=== PATIENT | male | born 1955 | race African-American/Black ===

== ENCOUNTER 2025-08-28 16:41 | Inpatient (IN) | payer MEDICARE, OTHER ==
[~2025-08-28] VITALS: Ht 177.8 cm; Wt 137.9 kg
[2025-08-28 17:08] LABS: PLATELET COUNT (AUTO) 180 K/uL (152-348); RED BLOOD CELL COUNT(AUTO) 3.61 MIL/uL (4.06-5.63); RED CELL DISTRIBUTION WIDTH 16.6 % (12.1-16.2); WHITE BLOOD COUNT (AUTO) 8.2 K/uL (3.6-10.2)
[2025-08-28] MEDS: IV NS 1000 ML 1,000 ML IV ONE (17:15)
[2025-08-28 17:18] LABS: CREATININE 2.6 mg/dL (0.6-1.3); SODIUM SERUM 141 mmol/L (136-145); UREA NITROGEN, BLOOD 50 mg/dL (7-18)
[2025-08-28 17:23] LABS: ASPARTATE AMINOTRANSFERASE 11 U/L (15-37); TOTAL PROTEIN, SERUM 7.5 g/dL (6.4-8.2)
[2025-08-28] MEDS ORDERED: LIDO30AD10 TD (17:28)
[2025-08-28] MEDS ORDERED: OLAN10TA73 PO (17:28)
[2025-08-28] MEDS ORDERED: SENN8.6T19 PO (17:28)
[2025-08-28] MEDS ORDERED: IPRA0.2S48 NEB (17:28)
[2025-08-28] MEDS ORDERED: TRAM50TA2 PO (17:28)
[2025-08-28] MEDS ORDERED: NITR0.4T48 SL (17:28)
[2025-08-28] MEDS ORDERED: BISA10SU61 RC (17:28)
[2025-08-28] MEDS ORDERED: AMLO10TA4 PO (17:28)
[2025-08-28] MEDS ORDERED: ISOS60TA72 PO (17:28)
[2025-08-28] MEDS ORDERED: DOCU100T2 PO (17:28)
[2025-08-28] MEDS ORDERED: FURO20TA4 PO (17:28)
[2025-08-28] MEDS ORDERED: MAGN400O6 PO (17:28)
[2025-08-28] MEDS ORDERED: COLC0.6T67 PO (17:28)
[2025-08-28] MEDS ORDERED: ASPI81TA31 PO (17:28)
[2025-08-28] MEDS ORDERED: TRAM100T23 PO (17:28)
[2025-08-28] MEDS ORDERED: SODI650T PO (17:28)
[2025-08-28] MEDS ORDERED: MELA3CAP2 PO (17:28)
[2025-08-28] MEDS ORDERED: CLOP75TA15 PO (17:28)
[2025-08-28] MEDS ORDERED: CALC667T8 PO (17:28)
[2025-08-28] MEDS ORDERED: METF-442 PO (17:28)
[2025-08-28] MEDS ORDERED: HYDR-4077 PO (17:28)
[2025-08-28] MEDS ORDERED: CARV25TA2 PO (17:28)
[2025-08-28] MEDS ORDERED: ATOR80TA PO (17:28)
[2025-08-28] MEDS ORDERED: INSU3INS6 SQ (17:28)
[2025-08-28] MEDS: NALOXONE HCL 0.4 MG/ML AMPUL IV ONE (17:30)
[2025-08-28] MEDS ORDERED: TRAZ150T75 PO (17:41)
[2025-08-28] MEDS ORDERED: INSU100V39 SQ (17:41)
[2025-08-28] MEDS ORDERED: ZOLP5TAB8 PO (17:41)
[2025-08-28] MEDS ORDERED: SERT50TA PO (17:41)
[2025-08-28] MEDS ORDERED: NALOXONE HCL 0.4 MG/ML AMPUL ONE (18:06)
[2025-08-28] MEDS ORDERED: METOCLOPRAMIDE HCL 10 MG/2 ML VIAL ONE (18:07)
[2025-08-28] MEDS: INSULIN REGULAR, HUMAN 1000 UNIT/10 ML VIAL IV ONE (18:07)
[2025-08-28] MEDS ORDERED: HYDROMORPHONE 1 MG/1 ML DISP.SYRIN ONE (18:07)
[2025-08-28] MEDS: DEXTROSE 50% 50 ML DISP.SYRIN IV ONE (18:07)
[2025-08-28] MEDS ORDERED: DEXTROSE 50% 50 ML DISP.SYRIN ONE (18:07)
[2025-08-28] MEDS: METOCLOPRAMIDE HCL 10 MG/2 ML VIAL IV ONE (18:07)
[2025-08-28] MEDS: HYDROMORPHONE 1 MG/1 ML DISP.SYRIN IV ONE (18:07)
[2025-08-28] MEDS ORDERED: INSULIN LISPRO 300 UNIT/3 ML VIAL SQ ONE (18:08)
[2025-08-28] MEDS ORDERED: REMEDY ESSENTIAL ZINC PASTE 113 GM TP PRN (18:15)
[2025-08-28] MEDS ORDERED: ONDANSETRON 4 MG/2 ML VIAL IV PRN (18:15)
[2025-08-28] MEDS: ALBUTEROL SULFATE 2.5 MG/3 ML NEBU NEB ONE ×2 (18:15)
[2025-08-28] MEDS ORDERED: MAGNESIUM HYDROXIDE 30 ML LIQUID UDC PO PRN (18:15)
[2025-08-28] MEDS: IPRATROPIUM BROMIDE 0.5 MG/2.5 ML NEBU NEB ONE (18:15)
[2025-08-28] MEDS ORDERED: SODIUM ZIRCONIUM CYCLOSILICATE 10 GM POWD.PACK PO ONE (18:15)
[2025-08-28] MEDS ORDERED: IPRATROPIUM BROMIDE 0.5 MG/2.5 ML NEBU ONE (18:22)
[2025-08-28] MEDS ORDERED: ALBUTEROL SULFATE 2.5 MG/3 ML NEBU ONE (18:22)
[2025-08-28 18:30] VITALS: O2SAT 21; O2SAT 92
[2025-08-28] MEDS ORDERED: ACETAMINOPHEN 500 MG TABLET ONE (19:14)
[2025-08-28] MEDS: ACETAMINOPHEN 500 MG TABLET PO ONE (19:25)
[2025-08-28 20:31] VITALS: BP 145/87
[2025-08-28 21:30] VITALS: BP 176/74; TEMP 98.4; O2SAT 97
[2025-08-28] MEDS: ACETAMINOPHEN 325 MG TABLET PO PRN (22:02)
[2025-08-28] MEDS: HYDROMORPHONE HCL 2 MG TABLET PO PRN (23:06)
[2025-08-29 05:21] VITALS: BP 139/60; TEMP 97.7; O2SAT 100
[2025-08-29 06:54] LABS: PLATELET COUNT (AUTO) 189 K/uL (152-348); RED BLOOD CELL COUNT(AUTO) 3.75 MIL/uL (4.06-5.63); RED CELL DISTRIBUTION WIDTH 16.8 % (12.1-16.2); WHITE BLOOD COUNT (AUTO) 8.1 K/uL (3.6-10.2)
[2025-08-29 07:23] LABS: CREATININE 2.5 mg/dL (0.6-1.3); SODIUM SERUM 142.0 mmol/L (136-145); UREA NITROGEN, BLOOD 47.0 mg/dL (7-18)
[2025-08-29] MEDS: SODIUM ZIRCONIUM CYCLOSILICATE 10 GM POWD.PACK PO ONE (07:56)
[2025-08-29] MEDS ORDERED: SODIUM ZIRCONIUM CYCLOSILICATE 10 GM POWD.PACK PO ONE (08:15)
[2025-08-29] MEDS ORDERED: INSULIN REGULAR, HUMAN 300 UNITS/3 ML VIAL SQ PRN (08:45)
[2025-08-29] MEDS ORDERED: DEXTROSE 50% 50 ML DISP.SYRIN IV PRN (08:45)
[2025-08-29] MEDS: ENOXAPARIN SODIUM 30 MG/0.3 ML DISP.SYRIN SUBCUT SCH (09:08)
[2025-08-29 12:00] VITALS: BP 153/78; TEMP 98.2; O2SAT 99
[2025-08-29] MEDS: BLOOD SUGAR DIAGNOSTIC 1 EACH STRIP VI SCH (12:00)
[2025-08-29] MEDS: INSULIN REGULAR, HUMAN 1000 UNIT/10 ML VIAL SQ PRN (12:03)
[2025-08-29] MEDS: ASPIRIN 325 MG TABLET PO ONE (12:41)
[2025-08-29] MEDS: NITROGLYCERIN 0.4 MG/TAB BOTTLE SL PRN (13:03)
[2025-08-29 13:14] VITALS: BP 135/67
[2025-08-29] MEDS: HYDROMORPHONE 1 MG/1 ML DISP.SYRIN IV PRN (15:20)
[2025-08-29] MEDS: IV 1/2NS 1000 ML 1,000 ML IV PRN (15:23)
[2025-08-29 16:22] VITALS: BP 143/71; TEMP 98.5; O2SAT 99
[2025-08-29 19:50] VITALS: BP_SYST 114; BP_SYST 130; BP_DIAS 77; BP_DIAS 83; TEMP 98.2; O2SAT 100; O2SAT 92
[2025-08-29 22:47] LABS: *BILIRUBIN,URIN NEGATIVE (NEGATIVE); *BLOOD, URINE NEGATIVE (NEGATIVE); *CLARITY,URINE CLEAR (CLEAR); *COLOR,URINE YELLOW (YELLOW); *KETONES,URINE NEGATIVE (NEGATIVE); *PROTEIN,URINE 3+ (NEGATIVE); *UROBILINOGEN,URINE 0.2 E.U./dl (NORMAL); LEUKOCYTE ESTERASE ,URINE NEGATIVE (NEGATIVE); NITRITE, URINE NEGATIVE (NEGATIVE); UGLUCOSE NEGATIVE (NEGATIVE)
[2025-08-29 22:58] LABS: *CREATININE,URINE 132.0 mg/dL (30-125); *SODIUM RNDM,URINE 82.0 mmol/L (40-220); *URINE TOTAL PROTEIN RANDOM 137.1 mg/dL (<150/24HR)
[2025-08-29 23:24] LABS: SQUAMOUS EPITHELIAL CELL,UR MODERATE /HPF (NONE SEEN)
[2025-08-30] VITALS (9 sets, daily range): BP systolic 123–190; BP diastolic 46–111; TEMP 97.6–98.4; O2SAT 55–100
[2025-08-30 06:52] LABS: PLATELET COUNT (AUTO) 176 K/uL (152-348); RED BLOOD CELL COUNT(AUTO) 3.52 MIL/uL (4.06-5.63); RED CELL DISTRIBUTION WIDTH 16.9 % (12.1-16.2); WHITE BLOOD COUNT (AUTO) 7.4 K/uL (3.6-10.2)
[2025-08-30 07:10] LABS: ASPARTATE AMINOTRANSFERASE 6.0 U/L (15-37); CREATINE KINASE, TOTAL 80.0 U/L (39-308); CREATININE 2.4 mg/dL (0.6-1.3); SODIUM SERUM 140.0 mmol/L (136-145); TOTAL PROTEIN, SERUM 7.2 g/dL (6.4-8.2); UREA NITROGEN, BLOOD 44.0 mg/dL (7-18)
[2025-08-30] MEDS ORDERED: MAGNESIUM HYDROXIDE 30 ML LIQUID UDC PO PRN (07:45)
[2025-08-30] MEDS ORDERED: BISACODYL 10 MG SUPP.RECT RC PRN (07:45)
[2025-08-30] MEDS ORDERED: SENNOSIDES 1 TABLET PO PRN (07:45)
[2025-08-30] MEDS ORDERED: IPRATROPIUM BROMIDE 0.5 MG/2.5 ML NEBU NEB SCH (09:00)
[2025-08-30] MEDS: CLOPIDOGREL 75 MG TABLET PO SCH (09:00)
[2025-08-30] MEDS: FUROSEMIDE 20 MG TABLET PO SCH (11:27)
[2025-08-30] MEDS: ASPIRIN 81 MG TAB.CHEW PO SCH (11:27)
[2025-08-30] MEDS: SERTRALINE HCL 50 MG TABLET PO SCH (11:34)
[2025-08-30] MEDS: AMLODIPINE 10 MG TABLET PO SCH (11:34)
[2025-08-30] MEDS: CARVEDILOL 25 MG TABLET PO SCH (11:35)
[2025-08-30] MEDS: ISOSORBIDE MONONITRATE 60 MG TAB.SR.24H PO SCH (11:35)
[2025-08-30] MEDS: OLANZAPINE 5 MG TABLET PO SCH (11:36)
[2025-08-30] MEDS: LIDOCAINE 5% PATCH TD SCH (11:39)
[2025-08-30] MEDS: CALCIUM ACETATE 667 MG CAP/TAB PO SCH (11:41)
[2025-08-30] MEDS: IPRATROPIUM BROMIDE 0.5 MG/2.5 ML NEBU NEB SCH (13:30)
[2025-08-30] MEDS: ATORVASTATIN 40 MG TABLET PO SCH (20:51)
[2025-08-30] MEDS: TRAZODONE 100 MG TABLET PO SCH (20:52)
[2025-08-30] MEDS: INSULIN GLARGINE,HUM 300 UNITS/3 ML CARTRIDGE SQ SCH (21:04)
[2025-08-30] MEDS: MUPIROCIN 2% OINT 22 GM TUBE NS SCH (21:04)
[2025-08-31] MEDS: MELATONIN 3 MG TABLET PO PRN (01:08)
[2025-08-31] MEDS: TRAMADOL HCL 50 MG TABLET PO PRN (01:08)
[2025-08-31 04:00] VITALS: BP 147/84; TEMP 97.6; O2SAT 100
[2025-08-31 09:10] VITALS: BP 155/79
[2025-08-31] MEDS: DOCUSATE SODIUM 100 MG CAPSULE PO SCH (09:19)
[2025-08-31 11:10] LABS: PTH, INTACT 97 pg/mL (15-65)
[2025-08-31 13:00] VITALS: BP 105/48
== END 2025-08-31 14:45 | DRG 640 ==
LOC: ER 16:41 → MEDSURG3 20:41
PROVIDERS: ADMIT Internal Medicine; ATTEND Internal Medicine
DX: E87.5 Hyperkalemia (principal); E43 Unspecified severe protein-calorie malnutrition; I69.354 Hemiplegia and hemiparesis following cerebral infarction affecting left non-dominant side; N17.9 Acute kidney failure, unspecified; Z68.41 Body mass index [BMI] 40.0-44.9, adult; E11.22 Type 2 diabetes mellitus with diabetic chronic kidney disease; N18.32 Chronic kidney disease, stage 3b; Z79.4 Long term (current) use of insulin; E78.5 Hyperlipidemia, unspecified; J44.9 Chronic obstructive pulmonary disease, unspecified; E66.01 Morbid (severe) obesity due to excess calories; Z87.891 Personal history of nicotine dependence; Z74.01 Bed confinement status; I12.9 Hypertensive chronic kidney disease with stage 1 through stage 4 chronic kidney disease, or unspecified chronic kidney disease; R53.1 Weakness; Z20.822 Contact with and (suspected) exposure to COVID-19
CPT/HCPCS: 36415; 71045; 76770; 83690; 83735; 83970; 84100; 84155; 84165; 84300; 84484; 85025; 86140; 93005; A4606; A4663; A9150; G0378; J1171; J1650; J1815; J2312; J2765; J3490; J3590; J7040